=== PATIENT | male | born 2000 | race African-American/Black ===

== ENCOUNTER 2021-10-27 22:54 | Emergency (ER) | payer MEDICAID ==
[~2021-10-27] VITALS: Ht 177.8 cm; Wt 78.1 kg
[2021-10-27 22:57] VITALS: BP 141/99
[2021-10-28] MEDS ORDERED: ALBUTEROL (0.083%) 2.5MG/3ML NEB HHN STA (00:09)
[2021-10-28] MEDS ORDERED: IPRATROPIUM BROMIDE (0.02%) 0.5MG/2.5ML NEB HHN STA (00:09)
[2021-10-28] MEDS ORDERED: PREDNISONE 20MG TABLET PO STA (00:09)
[2021-10-28] MEDS ORDERED: P50 MT (01:09)
[2021-10-28] MEDS ORDERED: ALBU6.7H9 INH (01:09)
== END 2021-10-28 01:21 | disposition home or self-care (01) ==
LOC: ER 22:54
DX: J45.901 Unspecified asthma with (acute) exacerbation (principal)
CPT/HCPCS: 94640; 99283; J7512; Z7610